=== PATIENT | male | born 1970 | race Caucasian/White ===

== ENCOUNTER → 2023-12-12 15:44 | Outpatient (REF) | payer BC, SELFPAY | LOC: CLAB 15:44 | PROVIDERS: ATTENDING PHYSICIAN Podiatrist Foot Surgery | DX: R22.41 Localized swelling, mass and lump, right lower limb (principal) | CPT/HCPCS: 88304 ==

== ENCOUNTER → 2024-09-04 07:30 | Outpatient (REF) | payer BC, SELFPAY | LOC: RCS 07:30 | PROVIDERS: ATTENDING PHYSICIAN Nurse Practitioner Family; FAMILY PHYSICIAN Internal Medicine Critical Care Medicine | DX: I10 Essential (primary) hypertension (principal) | CPT/HCPCS: 71046; 93306 ==